=== PATIENT | male | born 1950 | race Caucasian/White ===

== ENCOUNTER → 2016-09-24 | Outpatient (CLI) | payer MEDICAID, OTHER, SELFPAY | PROVIDERS: Family Provider Family Medicine; PCP Family Medicine; Visit Provider Specialist | DX: Z01.812 Encounter for preprocedural laboratory examination (principal); D3A.026 Benign carcinoid tumor of the rectum | CPT/HCPCS: 36415; 82565; 84520 ==

== ENCOUNTER → 2016-09-28 | Outpatient (CLI) | payer MEDICAID, OTHER, SELFPAY | PROVIDERS: Family Provider Family Medicine; PCP Family Medicine; Visit Provider Specialist | DX: D3A.026 Benign carcinoid tumor of the rectum (principal) | CPT/HCPCS: 72197; A9579 ==

== ENCOUNTER 2018-12-22 13:44 | Day surgery (SDC) | payer MEDICARE, SELFPAY ==
--- NOTE | 2018-12-22 | PATH_ITS ---
[facility] Accession Number: [id number] . 01 Material submitted: . PART A: colon - RIGHT COLON POLYP PROXIMAL PART B: colon - RIGHT COLON POLYP DISTAL PART C: sigmoid colon - SIGMOID POLYP PROXIMAL PART D: sigmoid colon - SIGMOID COLON DISTAL PART E: rectum - RECTAL POLYP . 02 Diagnosis: A. Right Colon, Polyp, Proximal, Biopsy: Colonic mucosa with no significant diagnostic abnormality. Negative for active, chronic and microscopic colitis. Negative for dysplasia and malignancy. . B. Right Colon, Polyp, Distal, Biopsy: Tubular adenoma. . C. Sigmoid Polyp, Proximal, Biopsy: Colonic mucosa with mild surface hyperplastic-type changes. Negative for dysplasia and malignancy. . D. Sigmoid Colon, Distal, Biopsy: Colonic mucosa with no diagnostic abnormality. Negative for active, chronic and microscopic colitis. Negative for dysplasia and malignancy. . E. Rectum, Polyp, Biopsy: Hyperplastic polyp. [facility]/12/27/2018 . 02 Electronically signed: . Any Montano MD, Pathologist NPI- [id number] . 01 Gross description: . Part A: RIGHT COLON POLYP PROXIMAL: Received in formalin is 1 fragment(s) of leon, soft tissue measuring 0.5 x 0.4 x 0.2 cm submitted entirely in 1 cassette(s) Part B: RIGHT COLON POLYP DISTAL: Received in formalin are 2 fragment(s) of leon, soft tissue measuring 0.4 x 0.4 x 0.3 cm to 0.3 x 0.3 x 0.2 cm submitted entirely in 1 cassette(s) Part C: SIGMOID POLYP PROXIMAL: Received in formalin is 1 fragment(s) of leon, soft tissue measuring 0.4 x 0.3 x 0.1 cm submitted entirely in 1 cassette(s) Part D: SIGMOID COLON DISTAL: Received in formalin are 2 fragment(s) of leon, soft tissue measuring 0.5 x 0.3 x 0.2 cm to 0.4 x 0.3 x 0.2 cm submitted entirely in 1 cassette(s) Part E: RECTAL POLYP: Received in formalin are 2 fragment(s) of leon, soft tissue measuring 0.4 x 0.3 x 0.3 cm to 0.3 x 0.3 x 0.3 cm submitted entirely in 1 cassette(s) /CKI /CKI . 02 Pathologist provided ICD-10: D12.6 . 02 CPT . 489701, 288281, 204252, 979438, 286385 Performed at: 01 [facility] [address] [place] [address], [place], [place] [id number] MD Claus Borden MD Phone: [phone] Performed at: 02 [facility] [address] [place], [place] [id number] MD Any Montano MD Phone: [phone]
[2018-12-22 14:09] VITALS: BP 123/88; PULSE 69; RESP 15; TEMP 36.6; O2SAT 96; BMI 31.2
[2018-12-22] MEDS: SODIUM CHLORIDE 0.9% 1,000 ML 200 ML IV (14:26)
[2018-12-22] MEDS: MIDAZOLAM 5 MG/5 ML VIAL IV (15:06)
[2018-12-22] MEDS: fentaNYL 250 MCG/5 ML INJ IV (15:07)
[2018-12-22 15:45] VITALS: BP 119/80; PULSE 57; RESP 16; TEMP 37; O2SAT 98
[2018-12-22 15:51] VITALS: BP 107/71; PULSE 56; RESP 10; O2SAT 97
--- NOTE | 2018-12-22 15:52 | SUR.PHASEI ---
Stable pacu stay
--- NOTE | 2018-12-22 15:54 | P.OP.ENDO_ITS ---
Operative Date/Time/Diagnoses Date of procedure: 12/22/18 Time of procedure: 15:48 Pre-op diagnosis: history of polyps Post-op diagnosis: same Procedure & Clinicians Study performed: surveillance colonoscopy Same procedure as scheduled: Yes Indications: history of polyps Procedure Notes SCOAP/Timeout: yes Procedure in detail: After obtaining informed consent, the patient was brought to the GI suite and placed in the left lateral decubitus position on the examination table. After placement of appropriate monitors, the patient was given incremental doses of Versed and Fentanyl until an appropriate level of sedation was achieved. A time out was held per SCOAP protocol. A digital rectal examination was performed and did not reveal any masses or obstructing lesions but small external hemorrhoids are noted. The colonoscope was gently passed into the patient's anus and the entire colon navigated to the level of the cecum with moderate difficulty due to spacticity of colon. Prep was subpar with thin stool remnants coating the sarabia- much of this was able to be cleared with water. Once in the cecum, the scope was slowly withdrawn being sure to go before and beyond all mucosal folds and prominences as able to get a thorough examination. Several polyps are noted, all 1-2mm and hyperplastic in appearance; details below. Other findings include scattered diverticula in the sigmoid colon. At the level of the rectal vault, the scope was retroflexed and the internal anal canal was examined with findings of a last tiny hyperplastic polyp. The scope was straightened and air aspirated from the colon. The instrument was removed from the patient's body and the procedure was concluded. The patient was allowed to awaken from sedation without difficulty and taken to the post-anesthesia care unit in good condition. Scope withdrawal time: 22 min Sedation minutes: 44 Findings: diverticulosis and polyp (scattered, all 1-2mm and hyperplastic in a ppearance) Specimen(s): other (R colon polyp- proximal; R colon polyp- distal; Sigmoid colon polyp- proximal; Sigmoid colon polyp- distal; Rectal polyp) Complications: none Impression: 1. Diverticulosis- sigmoid colon; few and scattered 2. Several polyps- sent for specimen, all hyperplastic in appearance Recommendations: Colonscopy in 5 years (pending path) and High fiber diet Follow up: as needed Disposition: PACU
[2018-12-22 15:55] VITALS: BP 102/70; PULSE 59; RESP 14; O2SAT 96
[2018-12-22 16:02] VITALS: BP 107/74; PULSE 58; RESP 12; O2SAT 97
[2018-12-22 16:14] VITALS: BP 118/69; PULSE 66; RESP 16; TEMP 36.7; O2SAT 99
--- NOTE | 2018-12-22 16:32 | SUR.PHASEII ---
Friend brought in, d/c instructions discussed, both voiced an understanding. Pt left when ready and left in stable condition.
--- NOTE | 2018-12-28 09:53 | PM.HP.1 ---
History of Present Illness Date Patient Seen: 12/22/18 Time Patient Seen: 09:53 Chief complaint: [id number] Colonoscopy Narrative: 68yo M for surveillance colonoscopy due to history of polyps. Asymptomatic, no pertinent family history. Patient History Social History household members: none Family & Social History Social History: household members none Meds Home Medications Medication Instructions Recorded Confirmed Type No Known Home Medications 12/22/18 12/22/18 History Allergies Allergy/AdvReac Type Severity Reaction Status Date / Time No Known Drug Allergies Allergy Verified 12/22/18 14:08 Review of Systems Constitutional Constitutional: Reports as per HPI Exam Vital Signs (past 8 hours): Oxygen Delivery Method Room Air Oxygen Flow Rate 2 Narrative Exam Narrative: AAO, NAD EOMI, MMM unlabored RA abd soft, nt/nd MAEW Assessment & Plan Assessment & Plan narrative: - surveillance colonoscopy --> all R/B/A discussed and pt wishes to proceed
== END 2018-12-22 16:25 | disposition home or self-care (01) ==
PROVIDERS: PCP Family Medicine; Visit Provider Surgery
PROC: 0DJD8ZZ Inspection of Lower Intestinal Tract, Via Natural or Artificial Opening Endoscopic (ICD-10-PCS; CPT 45378; principal; 2018-12-22 15:00)
DX: Z86.010 Personal history of colon polyps (principal); K57.30 Diverticulosis of large intestine without perforation or abscess without bleeding; D12.2 Benign neoplasm of ascending colon; D12.5 Benign neoplasm of sigmoid colon; K62.1 Rectal polyp
CPT/HCPCS: 45380; 88305; 99152; 99153; J2250; J3010

== ENCOUNTER → 2021-11-17 08:12 | Outpatient (CLI) | payer MEDICARE, SELFPAY | PROVIDERS: PCP Family Medicine; Visit Provider Specialist | DX: N13.8 Other obstructive and reflux uropathy (principal); N40.1 Benign prostatic hyperplasia with lower urinary tract symptoms; Z87.898 Personal history of other specified conditions | CPT/HCPCS: 84153 ==

== ENCOUNTER → 2023-06-28 16:27 | Outpatient (CLI) | payer MEDICARE, SELFPAY ==
--- NOTE | 2023-06-28 16:28 | DI.MRI.S_ITS ---
PROCEDURE: MR ABDOMEN WO/W CON INDICATIONS: CHRONIC PANCREATITIS TECHNIQUE: Coronal HASTE, axial 2D FLASH in- and [id number]; axial breath-hold T2 FSE with fat saturation from the hepatic dome to the iliac crests. Oblique coronal thin-slice and radial thick slab HASTE through the biliary system. Dynamic axial VIBE during administration of contrast. Post-contrast coronal VIBE or 2D FLASH with fat saturation from the hepatic dome to the iliac crests. Optional diffusion weighted imaging and ADC may be performed. COMPARISON: [facility], CT, ABDOMEN/PELVIS WITH CONTRAST, 08/10/2016, 11:32. FINDINGS: Pancreas and biliary system: No dilation of the main pancreatic duct. A few tiny pancreatic cysts are present, for example 6 mm at the pancreatic tail (series 4, image 20). Pancreatic parenchymal calcifications visualized on the prior CT are not well visualized by MRI. No drainable peripancreatic fluid collection visualized. No biliary ductal dilation. A large gallstone is present in the gallbladder lumen. Solid organs: Redemonstrated cyst at the inferior right lobe of the liver. Liver is otherwise unremarkable in size and enhancement. Spleen is normal in size and enhancement. No adrenal nodules. No hydronephrosis. Nodes and vessels: No retroperitoneal or mesenteric adenopathy by size criteria. Aorta and inferior vena cava are normal in size. Bowel and peritoneum: Visualized large and small bowel is non-dilated.. No free fluid. Lung bases: No basal pleural effusions. IMPRESSION: 1. No dilation of the main pancreatic duct visualized. No drainable peripancreatic fluid collection identified. 2. A few tiny pancreatic cysts are present, nonspecific, could represent side branch IPMNs but sequela of prior pancreatitis or other cystic neoplasms are not excluded. Imaging follow-up is recommended in 2 years per ACR incidental findings guidelines. 3. Cholelithiasis. Dictated by: Alfred Ramirez M.D. on 06/29/2023 at 14:13 Approved by: Alfred Ramirez M.D. on 06/29/2023 at 14:31
== END ==
PROVIDERS: PCP Family Medicine; Referring Provider Internal Medicine Gastroenterology; Visit Provider Internal Medicine Gastroenterology
DX: K86.1 Other chronic pancreatitis (principal); R93.3 Abnormal findings on diagnostic imaging of other parts of digestive tract; K80.20 Calculus of gallbladder without cholecystitis without obstruction
CPT/HCPCS: 74183; A9579

== ENCOUNTER 2023-08-16 13:20 | Day surgery (SDC) | payer MEDICARE, SELFPAY ==
--- NOTE | 2023-08-16 | PATH_ITS ---
[facility] Accession Number: [id number] No. of containers..01 Tissue . 01 Material submitted: . rectum - RESIDUAL RECTAL POLYP . 01 Diagnosis: Residual Rectal Polyp, Biopsy: Hyperplastic polyp. [facility] 08/25/2023 0818 Local . 01 Electronically signed: . Any Montano MD, Pathologist NPI- [id number] . 01 Gross description: . RESIDUAL RECTAL POLYP: Received in formalin is 1 fragment(s) of leon, soft tissue measuring 0.2 x 0.2 x 0.1 cm in aggregate submitted entirely in 1 cassette(s) /AAY 08/17/2023 0535 Local . 01 Pathologist provided ICD-10: K62.1 . 01 CPT . 830496 Specimen Comment: A courtesy copy of this report has been sent to [phone] Performed at: 01 [facility] [address] [place] [address], [place], [place] [id number] MD Claus Borden MD Phone: [phone]
--- NOTE | 2023-08-16 14:06 | PM.HP.1 ---
History of Present Illness History of Present Illness Date Patient Seen: 08/16/23 Chief complaint: Colonoscopy Narrative: History of colon polyps PFSH Medical History BPH w urinary obs/LUTS History of elevated PSA Kidney stones Social History household members: none Smoking Status: Never smoker Meds Home Medications and Allergies Home Medications Medication Instructions Recorded Confirmed Type tamsulosin 0.4 mg capsule 0.4 mg PO BEDTIME 06/14/20 10/08/20 History tamsulosin 0.4 mg capsule 0.4 mg PO BEDTIME #90 caps 06/19/20 10/08/20 Rx Allergies Allergy/AdvReac Type Severity Reaction Status Date / Time No Known Drug Allergies Allergy Verified 06/19/20 09:37 Exam Narrative Exam Narrative: Oropharynx free of lesions Chest clear to auscultation percussion Cardiac exam reveals no S3 or murmur Assessment & Plan Assessment & Plan narrative: History of colon polyp see for follow-up colonoscopy. Risks, benefits, alternatives have been explained.
--- NOTE | 2023-08-16 14:07 | PM.OP.COLON ---
Operative Date/Time/Diagnoses Date of procedure: 08/16/23 Pre-op diagnosis: See indication and findings Procedure & Clinicians Study performed: Colonoscopy Indications: History of polyps Surgeon: Alejandrina Sood Procedure Notes Procedure in detail: After informed consent was obtained the patient was placed in left lateral decubitus position. Video colonoscope was placed in the rectum slowly advanced cecum. Preparation was good. On slow withdrawal mucosa was carefully examined. The scope was removed. The patient tolerated procedure well. Blood loss none Complications none Sedation mac Findings 1. Residual scar in the rectum with a red polypoid area on 1 aspect. This was Jumbo biopsy x2 and removed. 2. Otherwise negative colonoscopy to cecum. Mr. Castillo will be contacted regarding his biopsies. At the very least he should have follow-up colonoscopy in 5 years.
[2023-08-16 14:15] VITALS: BP 142/84; PULSE 80; RESP 16; TEMP 36.6; O2SAT 97; BMI 35.2
[2023-08-16] MEDS: LACTATED RINGERS 1,000 ML 100 ML IV (14:19)
--- NOTE | 2023-08-16 14:25 | SUR.PREOP ---
1355 - Computers updating in department. pt taken for procedure before full admission completed.
[2023-08-16 14:37] VITALS: BP 103/71; PULSE 73; RESP 23; TEMP 36.2; O2SAT 97
[2023-08-16 14:43] VITALS: BP 107/71; PULSE 70; RESP 18; O2SAT 96
[2023-08-16 14:46] VITALS: BP 106/77; PULSE 67; RESP 22; TEMP 36.4; O2SAT 96
[2023-08-16 14:50] VITALS: BP 106/77; PULSE 71; RESP 16; O2SAT 95
== END 2023-08-16 15:20 | disposition home or self-care (01) ==
PROVIDERS: PCP Family Medicine; Referring Provider Internal Medicine Gastroenterology; Visit Provider Internal Medicine Gastroenterology
PROC: 0DJD8ZZ Inspection of Lower Intestinal Tract, Via Natural or Artificial Opening Endoscopic (ICD-10-PCS; CPT 45378; principal; 2023-08-16 15:30)
DX: Z12.11 Encounter for screening for malignant neoplasm of colon (principal); Z86.010 Personal history of colon polyps; K63.5 Polyp of colon
CPT/HCPCS: 45380

== ENCOUNTER → 2024-12-05 15:58 | Outpatient (CLI) | payer MEDICARE, SELFPAY ==
--- NOTE | 2024-12-05 | DI.RAD.S_ITS ---
PROCEDURE: XR ANKLE RT MIN 3V INDICATIONS: R FOOT PAIN TECHNIQUE: 3 views of the ankle were acquired. COMPARISON: None. FINDINGS: Bones: No fractures or dislocations. Degenerative changes are noted at the posterior talocalcaneal joint as well as within the tibiotalar joint and syndesmosis. Ankle mortise is normally aligned. No suspicious bony lesions. Soft tissues: No tibiotalar joint effusion. Achilles tendon appears normal. IMPRESSION: Degenerative change without evidence of acute bony abnormality or significant effusion. Dictated by: Bruno Christiansen M.D. on 12/06/2024 at 14:45 Approved by: Bruno Christiansen M.D. on 12/06/2024 at 14:47
== END ==
PROVIDERS: PCP Family Medicine; Referring Provider Podiatrist Foot & Ankle Surgery; Visit Provider Podiatrist Foot & Ankle Surgery
DX: M79.671 Pain in right foot (principal)
CPT/HCPCS: 73610